=== PATIENT | female | born 1980 | race Hispanic/Latino ===

== ENCOUNTER 2019-06-21 10:16 | Outpatient (CLI) | payer MEDICAID ==
[2019-06-21 18:30] VITALS: BP 152/105
== END 2019-06-21 12:28 | disposition home or self-care (01) ==
LOC: LAB 10:16 → APU 12:15 → LAB 12:28
PROVIDERS: ATTEND Obstetrics & Gynecology
DX: O26.893 Other specified pregnancy related conditions, third trimester (principal); O09.523 Supervision of elderly multigravida, third trimester; Z3A.33 33 weeks gestation of pregnancy; Z67.11 Type A blood, Rh negative
CPT/HCPCS: 86850; 86900; 86901; 96372; J2790